=== PATIENT | male | born 1950 ===

== ENCOUNTER 2024-09-16 10:15 | Emergency (ER) | payer MEDICARE, SELFPAY ==
[2024-09-16 10:19] VITALS: BP 157/89
[2024-09-16 10:27] VITALS: BMI 34.2
[2024-09-16 10:52] LABS: % Basophils 0.3 % (0-2); % Eosinophils 1.2 % (0-6); % Immature Granulocytes 0.1 % (0-0.5); % Lymphocytes 22.3 % (20.5-51.1); % Monocytes 12.1 % (1.7-9.3); Absolute Eosinophils 0.1 10^3/uL (0-0.7); Absolute Lymphocytes 1.5 10^3/uL (1.2-3.4); Absolute Monocytes 0.8 10^3/uL (0.1-0.6); Absolute Neutrophils 4.3 10^3/uL (1.4-6.5); Hematocrit 42.5 % (39.0-52.0); Hemoglobin 14.4 g/dL (13.0-18.0); Mean Corp Hgb Conc. 33.9 g/dL (33.0-37.0); Mean Corpuscular Hgb 32.4 pg (27.0-31.0); Mean Corpuscular Volume 95.5 fL (80.0-94.0); Mean Platelet Volume 8.2 fL (7.4-10.4); Nucleated Red Blood Cells % 0 % (-); Platelet Count 187 10^3/uL (130-400); Red Blood Cell Count 4.45 10^6/uL (4.70-6.10); Red Cell Dist. Width 13.2 % (11.5-14.5); White Blood Cell Count 6.7 10^3/uL (4.8-10.8)
[2024-09-16 11:10] LABS: ALT (SGPT) 15 U/L (0-50); AST (SGOT) 21 U/L (17-59); Albumin 4.1 g/dl (3.5-5.0); Alkaline Phosphatase 68 U/L (38-126); Blood Urea Nitrogen 18 mg/dl (9-20); Calcium 8.9 mg/dl (8.4-10.2); Carbon Dioxide 27 mmol/L (22-30); Chloride 101 mmol/L (98-107); Estimated Creatinine Clearance 114 ml/min; Glucose 95 mg/dl (70-99); Magnesium 1.6 mg/dl (1.6-2.3); Potassium 4.1 mmol/L (3.5-5.1); Sodium 137 mmol/L (135-145); Total Bilirubin 0.5 mg/dl (0.2-1.3); Total Protein 6.6 g/dl (6.3-8.2); eGFR > 60.00
[2024-09-16 11:15] VITALS: BP 111/83
[2024-09-16 11:16] LABS: NT-proBNP 707 pg/ml; Troponin I < 0.012 ng/ml
[2024-09-16 11:36] LABS: TSH 1.32 uIU/ml (0.47-4.68)
--- NOTE | 2024-09-16 11:44 | ED.GENMED ---
History of Present Illness
General
Chief Complaint: Breathing Problem
Source: patient
Exam Limitations: none
Time Seen by Provider: 09/16/24 10:20
Nursing documentation reviewed up to this point in time: agreed with
History of Present Illness
History of Present Illness:
73-year-old male past medical history of hypertension hyperlipidemia, diabetes presenting to the emergency department today with concerns of shortness of breath and A-fib that was found at urgent care. He claims that he went to the urgent care due
to some shortness of breath associated with recent viral illness over the past 2 weeks. He was found to be in atrial fibrillation and was sent to the ER. Denies any specific chest pain no history of A-fib. Denies specific palpitations.
Review of Systems
Review of Systems
Allergies reviewed?: Yes
All Other Systems: ROS reviewed and negative except as documented in HPI and ROS
Phy Exam
Physical Exam
Physical Exam:
GENERAL: Alert , in no apparent distress
EYE: pupils equal and reactive
NECK: Supple, no significant adenopathy.
ENT: o/p clr, mmm.
CARDIAC: Irregularly irregular
LUNGS: Clear breath sounds bilaterally, no acute respiratory distress, no wheezes/rales/rhonchi
ABDOMEN: Soft, without focal tenderness, no r/g, no cvat
NEUROLOGICAL: Alert and oriented, no focal neuro deficits
SKIN: Warm and dry, skin intact.
MUSCULOSKELETAL: No edema, well perfused.
PSYCH: Normal and appropriate interaction.
Scores
Heart Failure Risk
Heart Failure Risk Score: Not Applicable
Course
Orders/Labs/Results
Orders:
Orders
09/16/24 10:18
Electrocardiogram (*1) Urgent
Reason for Study: Shortness of Breath
EKG- Treatment ONCE
09/16/24 10:31
CR Chest - 2 Views Urgent
Comment:
Reason For Exam: sob
09/16/24 10:32
Complete Blood Count/With Diff Urgent
Comprehensive Metabolic Panel Urgent
Magnesium Urgent
NT-proBNP Urgent
TSH Urgent
Troponin I Urgent
09/16/24 13:27
Apixaban [Eliquis] 5 mg PO ONCE ONE
Abnormal Lab Results
09/16/24
10:32
RBC 4.45 L 10^6/uL
(4.70-6.10)
MCV 95.5 H fL
(80.0-94.0)
MCH 32.4 H pg
(27.0-31.0)
Absolute Monos (auto) 0.8 H 10^3/uL
(0.1-0.6)
Monocytes % 12.1 H %
(1.7-9.3)
09/16/24 10:32
09/16/24 10:32
Vital Signs
Initial and Last Documented VS:
Initial Vital Signs
Temp Pulse Resp BP Pulse Ox
97.7 F 53 18 157/89 96
09/16/24 10:19 09/16/24 10:19 09/16/24 10:19 09/16/24 10:19 09/16/24 10:19
Last Documented Vital Signs
Temp Pulse Resp BP Pulse Ox
97.7 F 54 16 128/83 96
09/16/24 10:19 09/16/24 13:45 09/16/24 13:45 09/16/24 13:00 09/16/24 13:45
MDM/Problems Addressed
MDM/Problems Addressed:
73-year-old male presenting to the emergency department today with concerns of new onset A-fib found in urgent care prior to arrival. Was initially being seen due to continued upper respiratory symptoms over the past 2 weeks. Which sound to be
consistent with viral syndrome potential bronchitis. EKG showing A-fib at a slow rate in the 50s. Otherwise here patient no distress chest x-ray did have findings of pneumonitis. This was discussed with the patient. He is aware. A-fib was
discussed with cardiology recommending Eliquis and outpatient follow-up. Patient denies any known bleeding or bleeding concerns recently. Proper instructions given in regard to Eliquis otherwise stable for discharge return precautions given.
*Critical Care Note
Total Time (30-74mins, 75-104mins- exclusive of procedures): Not Applicable
ED Attending Note
-
Portions of this chart may have been created with voice recognition software.� Occasional wrong word or��sound alike� substitutions may have occurred due to the inherent limitations of voice recognition software.
Discharge Plan
Departure
Patient Disposition: Home (Routine Discharge)
Date of Disposition: 09/16/24
Time of Disposition: 13:28
Patient with high blood pressure during this ER visit?: No
Condition: Good
Covid-19: Not Applicable
Discharge Problem:
Atrial fibrillation
Instructions: Atrial Fibrillation (DC), Apixaban
Prescriptions:
New
Eliquis 5 mg tablet
5 mg PO BID 30 Days Qty: 60 0RF
Referrals:
Speedy Aceves MD [Active] - Follow up in 5-7 days
NONE,* [Family Provider] -
Activity Restrictions/Additional Instructions:
You came to the emergency department today with concerns of atrial fibrillation. The remainder of your workup was reassuring. Please take the prescribed Eliquis twice daily and follow-up closely with cardiology. Return to the emergency department
for any worsening, new or concerning symptoms.
Interventions
Interventions:
*Risk Screen - Suicide Last Done: 09/16/24 10:27
*General Assessment Last Done: 09/16/24 10:19
*Neglect/Abuse Screening Last Done: 09/16/24 10:19
*ED COVID-19 Vaccine History Last Done: 09/16/24 10:31
*Nursing Disposition Last Done: 09/16/24 14:35
ED- Cardiac Assessment Last Done: 09/16/24 10:27
ED- Pulmonary Assessment Last Done: 09/16/24 10:27
Discharge Date and Time
Discharge Date/Time: 09/16/24 14:35
Print Language: [place]IZ[place]
[2024-09-16 12:00] VITALS: BP 120/73
[2024-09-16 13:00] VITALS: BP 128/83
[2024-09-16] MEDS: ELIQUIS 5 MG PO (13:56)
== END 2024-09-16 14:35 | disposition home or self-care (01) ==
LOC: EMR 10:15
PROVIDERS: Physician Assistant; EMERGENCY PHYSICIAN Emergency Medicine
DX: R06.02 Shortness of breath (principal); I48.91 Unspecified atrial fibrillation; I10 Essential (primary) hypertension; E78.00 Pure hypercholesterolemia, unspecified; E11.9 Type 2 diabetes mellitus without complications; Z79.01 Long term (current) use of anticoagulants; Z95.0 Presence of cardiac pacemaker
CPT/HCPCS: 99283; 71046; 80053; 83735; 83880; 84443; 84484; 85025; 93005